=== PATIENT | female | born 1950 | race Hispanic/Latino ===

== ENCOUNTER 2022-12-18 09:57 | Emergency (ER) | payer OTHER, MEDICARE ==
[~2022-12-18] VITALS: Ht 167.6 cm; Wt 79.4 kg
[~2022-12-18 09:57] MED LIST: ARIP5TAB13 PO; MULT-1192 PO; SERT-440 PO
[2022-12-18] MEDS ORDERED: ACETAMINOPHEN 500 MG TABLET PO ONE (13:00)
[2022-12-18 15:37] VITALS: BP 126/85
== END 2022-12-18 15:35 | disposition home or self-care (01) ==
LOC: EDH 09:57
DX: S20.219A Contusion of unspecified front wall of thorax, initial encounter (principal); S00.83XA Contusion of other part of head, initial encounter; F31.9 Bipolar disorder, unspecified; Z79.899 Other long term (current) drug therapy; W18.39XA Other fall on same level, initial encounter; Y93.89 Activity, other specified; Y92.89 Other specified places as the place of occurrence of the external cause; Y99.8 Other external cause status
CPT/HCPCS: 70450; 70486; 71101; 72125; 73502